=== PATIENT | female | born 1995 ===

== ENCOUNTER 2022-11-14 19:50 | Emergency (ER) | payer BC, OTHER ==
[2022-11-14] MEDS ORDERED: Diphtheria,Pertussis(Acell),Tetanus Vaccine 0.5 ML Syringe IM ONE (20:00)
[2022-11-14] MEDS ORDERED: Sodium Chloride 0.9% 2.5 ML Syringe FLUSH PRN (20:02)
[2022-11-14] MEDS ORDERED: Sodium Chloride 0.9% 10 ML Syringe FLUSH PRN (20:02)
[2022-11-14] MEDS ORDERED: ceFAZolin 2 GM in Sodium Chloride 0.9% 50 ML IV STA (20:04)
[2022-11-14] MEDS ORDERED: fentaNYL 50 MCG/ML SDV IVPUSH STA (20:08)
[2022-11-14] MEDS ORDERED: Lidocaine 1% 5 ML VIAL INJECT STA ×2 (20:08)
[2022-11-14 20:41] LABS: BASOPHILS ABSOLUTE AUTO 0.1 K/uL (0.0-0.1); BASOPHILS PERCENT AUTO 1.1 % (0.0-1.5); EOSINOPHILS ABSOLUTE AUTO 0.4 K/uL (0.0-0.7); EOSINOPHILS PERCENT AUTO 5.8 % (0.0-7.0); HEMATOCRIT 39.7 % (36.0-46.0); HEMOGLOBIN 14.1 g/dL (12.0-16.0); LYMPHOCYTES ABSOLUTE AUTO 3.3 K/uL (0.6-2.4); LYMPHOCYTES PERCENT AUTO 45.7 % (16.0-40.0); MEAN CORPUSCULAR HEMOGLOBIN 32.7 pg (27.0-32.0); MEAN CORPUSCULAR HGB CONC 35.5 g/dL (31.0-37.0); MEAN CORPUSCULAR VOLUME 92.1 fL (80.0-98.0); MONOCYTES ABSOLUTE AUTO 0.7 K/uL (0.0-0.8); MONOCYTES PERCENT AUTO 9.3 % (0.0-15.0); NEUTROPHILS ABSOLUTE AUTO 2.7 K/uL (1.4-5.7); NEUTROPHILS PERCENT AUTO 38.1 % (48.0-80.0); NRBC ABSOLUTE 0 K/uL; PLATELET COUNT,PLT 330 K/uL (150-400); RED BLOOD CELL COUNT 4.31 M/uL (4.30-5.90)
[2022-11-14 21:03] LABS: CALCIUM 8.8 mg/dL (8.5-10.1); CARBON DIOXIDE,CO2 26.4 mmol/L (21.0-32.0); CREATININE 1.2 mg/dL (0.6-1.0); EST CRCL DRUG DOSING (CG) 64.76 mL/min; POTASSIUM,K 3.2 mmol/L (3.5-5.1)
== END 2022-11-14 21:54 | disposition home or self-care (01) ==
LOC: MW.ED 19:50
DX: S62.612B Displaced fracture of proximal phalanx of right middle finger, initial encounter for open fracture (principal); Z23 Encounter for immunization; W21.07XA Struck by softball, initial encounter
CPT/HCPCS: 26770; 36415; 73130; 80048; 85025; 90471; 90715; 96365; 99283; J0690; J3010; J3490; 99284